=== PATIENT | male | born 1975 | race African-American/Black ===

== ENCOUNTER 2017-09-25 10:08 | Inpatient (IN) | payer SELFPAY ==
--- NOTE | 2017-09-25 10:42 | RAD ---
1 VIEW CHEST: Date: 09/25/17 HISTORY: Cough with chest soreness. COMPARISON: None. FINDINGS: Severe emphysematous changes throughout the lung parenchyma. Hyperinflation is noted. No pneumothorax . Normal cardiac silhouette. IMPRESSION: Severe emphysematous change throughout the lung parenchyma. Large bullae noted in both upper lobes. POS: [facility]
[2017-09-25 11:27] LABS: #Basophils 0.1 thou/uL (0.0-0.2); #Lymphocytes 2.3 thou/uL (1.20-3.40); #Neutrophils 9.3 thou/uL (1.40-6.50); %Basophils 0.6 % (0.0-1.0); %Eosinophils 0.1 % (0.0-10.0); %Lymphocytes 18.2 % (21.0-51.0); %Monocytes 7.8 % (0.0-10.0); Hematocrit 45.4 % (42.0-52.0); Mean Platelet Volume 7.4 fL (7.4-10.4); Red Blood Cell (RBC) Count 4.64 mill/uL (4.70-6.10); White Blood Cell (WBC) Count 12.7 thou/uL (4.8-10.8)
[2017-09-25] MEDS ORDERED: ISOVUE-370 76%-LOCM 1 ML ONE (11:48)
[2017-09-25 11:52] LABS: ALT (SGPT) 19 U/L (8-55); AST (SGOT) 16 U/L (5-34); Alkaline Phosphatase 81 U/L (40-150); Anion Gap 14 mmol/L (10-20); BUN (Urea Nitrogen) 9 mg/dL (8.9-20.6); Bilirubin, Total 0.5 mg/dL (0.2-1.2); CK (CPK) 131 U/L (30-200); Calc. Creatinine Clearance 0 mL/min (70-130); Calcium 9.9 mg/dL (7.8-10.44); Carbon Dioxide 24 mmol/L (22-29); Chloride 104 mmol/L (98-107); Estimated GFR-MDRD Greater than 90; Globulin 3.3 g/dL (2.4-3.5); Lipase 22 U/L (8-78); Protein, Total 7.9 g/dL (6.0-8.3)
[2017-09-25 11:56] LABS: Troponin I Less than 0.010 ng/mL (< 0.028)
[2017-09-25] MEDS ORDERED: Guaifenesin DM 100-10/5 ML UDCUP PO PRN (12:53)
[2017-09-25] MEDS ORDERED: Acetaminophen 325 MG TAB PO PRN (12:53)
[2017-09-25 13:57] VITALS: BMI 17.4
--- NOTE | 2017-09-25 15:42 | CT ---
CT CHEST WITH CONTRAST: Date: 09/25/17 INDICATION: Emphysema. FINDINGS: There is bullous emphysema bilaterally, preferentially involving the upper lobes. Thoracic aorta is n ormal in caliber. No consolidation or effusion. No pneumothorax. No evidence of acute osseous abnorma lity. IMPRESSION: Bullous emphysema. This preferentially involves the upper lobes bilaterally. POS: [facility]
[2017-09-25] MEDS ORDERED: Azithromycin 250 MG TAB PO SCH (16:15)
[2017-09-25] MEDS ORDERED: predniSONE 20 MG TAB PO SCH (16:15)
--- NOTE | 2017-09-25 17:09 | CON ---
DATE OF CONSULTATION: 09/25/2017 REASON FOR CONSULTATION: Bullae. HISTORY OF PRESENT ILLNESS: The patient is a 42-year-old -Welsh male with past medical his tory significant for cigarette smoke. He has a 14-dwai-kmes history of smoking. He also smokes mara le bit of marijuana. Outside that, he has never really had any lung problems. When he was younger, he had 3 severe pneumonias. Each one of them put in the hospital. That being said, by the time he w as a teenager, he had no additional events. He played sports when he was growing up and was always i n front of the pack. He is very athletic. That being said over the past 2-3 years, he has had progr essive dyspnea on exertion. He also has a cough, nonproductive on most days of the week. He denies any current fevers, chills, nausea or vomiting. Recently, he has been having a coughing fit. As a r esult of this, he started having onset of left thoracic cage chest discomfort. [facility] and was subsequently admitted to rule out an [place]. He currently denies any fevers, chills, nausea, vomiting, diarrhea or shortness of breath. PAST MEDICAL HISTORY: None. PAST SURGICAL HISTORY: None. SOCIAL HISTORY: Negative for significant alcohol use. He uses marijuana from time to time. He smok es roughly half pack on a daily basis. He has been doing so for greater than 20 years. He denies an y other illicit substances. He has never smoked any crack cocaine. He has no exposure to chemicals, dust, asbestos or tuberculosis. FAMILY HISTORY: Noncontributory. ALLERGIES: No known drug allergies. MEDICATIONS: List of inpatient medications were reviewed. No specific updates were made at this [facility]. REVIEW OF SYSTEMS: General, head, ears, eyes, nose, throat, cardiovascular, respiratory, GI, , mus culoskeletal, neurologic and skin is negative except as mentioned in the HPI. PHYSICAL EXAMINATION: VITAL SIGNS: Afebrile, pulse 49, blood pressure 121/86, respirations 16, saturation 100% on room air . GENERAL: Patient is awake, alert, in no apparent distress. LUNGS: Excellent air entry. No prolonged expiratory phase, wheezing, rhonchi or crackles. HEART: Normal rate, regular. ABDOMEN: Soft, nontender, nondistended, bowel sounds positive. MUSCULOSKELETAL: No cyanosis or clubbing. No pitting in the bilateral lower extremities. NEUROLOGIC: Grossly nonfocal. LABORATORY DATA: WBC 12.7, hemoglobin 14.7, platelets 271,000. Basic metabolic profile and liver fu nction studies are otherwise unremarkable. Cardiac enzymes x1 is negative. BNP is normal. IMAGING: CT scan demonstrates multiple apical bullae present. This is paraseptal and more predomina ntly involve the upper lobes. There is no acute cardiopulmonary abnormality otherwise identified. I looked in the care of the thoracic wall in which his chest pain was located and all I could see was a prominent intercostal muscle. There was minimal asymmetry compared to the opposite side. Chest x- ray demonstrates bullous emphysematous changes without acute cardiopulmonary process. ASSESSMENT: 1. Chronic obstructive pulmonary disease with acute exacerbation. 2. Musculoskeletal pain from coughing. PLAN: We will give him a 5-day course of steroids. This will be 40 mg p.o. daily for this duration of 5 days. Also, gave him a 5-day course of azithromycin. He can take ibuprofen in the outpatient b asis for discomfort. Otherwise, Pulmonary Critical Care will continue to follow. The alpha 1 antitr ypsin level was ordered. The phenotype was also requested. I will have him return to clinic to see me in 3-4 weeks in the outpatient setting, so that we can follow up the results of laboratory. In e meantime, I strongly encouraged the patient and he means to look into [facility] [place]
--- NOTE | 2017-09-25 17:27 | HP ---
REASON FOR ADMISSION: COPD exacerbation with massive bullous emphysema. HISTORY OF PRESENT ILLNESS: The patient gives history of left-sided chest pain , which is worse on coughing and movement of his upper torso. The chest pain is mild and is always there, which gets worse to the point of 10/10 on coughing , sneezing and movement. The chest pain is on the left chest. He has a dry cough, but no expectoration. No complaints of fever. The patient has never been hospitalized before nor has he been diagnosed with COPD or emphysema in the past. No other family members have lung issues per patient. The patient smokes one pack a day and has been doing so for the last 20 years. He also smokes marijuana occasionally. 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 PAST MEDICAL/SURGICAL HISTORY: Bipolar disorder, not on any medication. CURRENT MEDICATIONS: None. ALLERGIES: No known drug allergies. PERSONAL HISTORY: Smokes one pack a day and has been doing so for the last 20 years. He smokes marijuana occasionally. Does not abuse alcohol or drugs. Lives with his . FAMILY HISTORY: Both parents are healthy. Has three brothers who are healthy as far as he knows. REVIEW OF SYSTEMS: The following complete review of systems was negative, unless otherwise mentioned in the HPI or below: Constitutional: Weight loss or gain, ability to conduct usual activities. Skin: Rash, itching. Eyes: Double vision, pain. ENT/Mouth: Nose bleeding, neck stiffness, pain, tenderness. Cardiovascular: Palpitations, dyspnea on exertion, orthopnea. Respiratory: Shortness of breath, wheezing, cough, hemoptysis, fever or night sweats. Gastrointestinal: Poor appetite, abdominal pain, heartburn, nausea, vomiting, constipation, or diarrhea. Genitourinary: Urgency, frequency, dysuria, nocturia. Musculoskeletal: Pain, swelling. Neurologic/Psychiatric: Anxiety, depression. Allergy/Immunologic: Skin rash, bleeding tendency. PHYSICAL EXAMINATION: GENERAL: The patient is a 42-year-old male who is currently not in any acute distress. VITAL SIGNS: Blood pressure 140/76, pulse 74 per minute, respiratory rate 18 per minute, temperature 98.2 degrees Fahrenheit, saturating 98% on room air. NECK: Supple, no elevated JVD. HEENT: Extraocular muscles intact. Pupils reacting to light. Oral cavity mucous membranes are moist. No exudates or congestion. CARDIOVASCULAR: S1, S2 heard. Regular rhythm. RESPIRATORY: Air entry 1+ bilateral. There is rhonchi heard. ABDOMEN: Soft, bowel sounds heard. No tenderness, rigidity or guarding. EXTREMITIES: No peripheral edema or calf tenderness. VASCULAR SYSTEM: Peripheral pulses 1+ bilateral. No ischemic ulcerations or gangrene. CENTRAL NERVOUS SYSTEM: No gross focal deficits seen. Patient is alert, awake , oriented x3. PSYCHIATRIC SYSTEM: The patient's mood is euthymic. No hallucinations or delusions. LABORATORY AND X-RAY FINDINGS: White count of 12, H&H 14 and 45, platelet count 271, MCV is 97 with 73% neutrophils. Electrolytes are stable. BUN 9, creatinine 1.0. Glucose 73. Liver enzymes within normal limits. First set of cardiac enzymes are negative. BNP is 18, lipase is 22. Chest x-ray done shows findings of emphysema. CT chest, the official reports are pending. Per my review shows severe bullous disease in both upper lobes, especially worse in left upper lobe. EKG done shows normal sinus rhythm at 71 beats per minute with signs of LVH. CLINICAL IMPRESSION AND PLAN: The patient will be admitted to medical floor for severe emphysema with mild chronic obstructive pulmonary disease exacerbation. It is unclear if he ruptured any of the bullae with current left- sided chest pain, worse on deep breathing, coughing and sneezing. He will be empirically placed on Augmentin 875 mg twice daily along with DuoNebs q.6 hourly and steroids IV. I have spoken to Dr. Osborne who will be consulted for Pulmonology. We will obtain alpha 1 antitrypsin levels and CARLEY with reflex. We will obtain an echo with 2D Doppler as well in view of LVH seen on the EKG. We will continue to closely monitor him on medical floor for now. DINAH
[2017-09-25] MEDS ORDERED: Arformoterol 15 MCG/2 ML NEB NEB SCH (18:30)
[2017-09-25] MEDS ORDERED: Amoxicillin/Potassium Clav 875 MG TAB PO SCH (21:00)
[2017-09-25] MEDS ORDERED: Famotidine 20 MG TAB PO SCH ×2 (21:00→23:59)
[2017-09-25] MEDS ORDERED: Calcium Carbonate 500 MG ChewTAB PO PRN (23:50)
[2017-09-25] MEDS ORDERED: Mag-Al 1200 mg/1200 mg/30 ML UDCUP PO PRN (23:50)
[2017-09-26 04:52] LABS: Anion Gap 15 mmol/L (10-20); BUN (Urea Nitrogen) 11 mg/dL (8.9-20.6); Calc. Creatinine Clearance 80 mL/min (70-130); Calcium 9.9 mg/dL (7.8-10.44); Carbon Dioxide 24 mmol/L (22-29); Chloride 102 mmol/L (98-107); Estimated GFR-MDRD Greater than 90
[2017-09-26 05:05] LABS: #Lymphocytes 1.4 thou/uL (1.20-3.40); #Monocytes 0.2 thou/uL (0.11-0.59); #Neutrophils 9.2 thou/uL (1.40-6.50); %Basophils 0.1 % (0.0-1.0); %Eosinophils 0.1 % (0.0-10.0); %Lymphocytes 12.5 % (21.0-51.0); %Monocytes 2.2 % (0.0-10.0); Hematocrit 44.9 % (42.0-52.0); Mean Platelet Volume 7.5 fL (7.4-10.4); Red Blood Cell (RBC) Count 4.59 mill/uL (4.70-6.10); White Blood Cell (WBC) Count 10.8 thou/uL (4.8-10.8)
--- NOTE | 2017-09-26 07:34 | CON ---
DATE OF CONSULTATION: 09/26/2017 HISTORY OF PRESENT ILLNESS: This is a 42-year-old gentleman admitted with some chest wall pain. He was noted to have an abnormal chest x-ray and CT scan was also performed. Findings revealed severe b ullous disease of bilateral upper lobes with apparently well preserved parenchyma on the lower lobes. PAST MEDICAL HISTORY: Unremarkable. 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 He is accompanied by a female friend. He smokes about a half pack of cigarettes a day. MEDICATIONS: None. ALLERGIES: None. PAST MEDICAL HISTORY: Includes only episode of pneumonia x3 as a child. REVIEW OF SYSTEMS: The patient does admit to dyspnea on exertion, perhaps worse in the past year or so, but otherwise has had no limitations in the past. At this time, the patient does not have symptoms to warrant thoracotomy, but down the road it may angelica efit him if he becomes symptomatic. Alpha 1 antitrypsin level is pending and the patient has been co unseled by myself in regards to smoking cessation. He will follow up with Dr. Osborne in regards to his lung disease.
[2017-09-26] MEDS: Azithromycin 250 MG TAB PO SCH (09:43)
[2017-09-26] MEDS: predniSONE 20 MG TAB PO SCH (09:44)
[2017-09-26] MEDS: Enoxaparin Sodium 40 MG/0.4 ML SYRINGE SC SCH (09:44)
[2017-09-26] MEDS: Famotidine 20 MG TAB PO SCH ×2 (09:44→20:31)
--- NOTE | 2017-09-26 10:41 | PDOC.PN ---
- Subjective Encounter Start Date: 09/26/17 Encounter Start Time: 08:15 Subjective: chest pain is better today -: no sob - Objective MAR Reviewed: Yes Vital Signs & Weight: Vital Signs (12 hours) Temp Pulse Resp BP Pulse Ox 09/26/17 08:16 67 16 100 09/26/17 08:00 98.6 F 67 16 98 09/26/17 07:52 98.6 F 60 18 131/77 98 09/26/17 04:00 97.5 F L 69 16 137/76 95 09/26/17 00:00 97.4 F L 57 L 18 134/86 97 Weight Weight 128 lb 14.4 oz I&O: 09/25/17 09/26/17 09/27/17 06:59 06:59 06:59 Intake Total 500 Balance 500 Result Diagrams: 09/26/17 03:54 09/26/17 03:54 Phys Exam - Physical Examination HEENT: PERRLA, moist MMs Neck: no JVD, supple Respiratory: no wheezing, no rales Cardiovascular: RRR, no significant murmur Gastrointestinal: soft, non-tender, positive bowel sounds Musculoskeletal: no edema, pulses present Neurological: non-focal, moves all 4 limbs Psychiatric: A&O x 3 Dx/Plan (1) Emphysema lung Code(s): J43.9 - EMPHYSEMA, UNSPECIFIED Status: Acute Qualifiers: Emphysema type: unspecified Qualified Code(s): J43.9 - Emphysema, unspecified (2) Chest pain Code(s): R07.9 - CHEST PAIN, UNSPECIFIED Status: Acute Qualifiers: Chest pain type: chest pain on breathing Qualified Code(s): R07.1 - Chest pain on breathing; R07.81 - Pleurodynia (3) Tobacco abuse Code(s): Z72.0 - TOBACCO USE Status: Chronic - Plan is on nebs, steroids -: empiric zithromax -: dc plan in am -: send out labs pending * . Review of Systems - Medications/Allergies Allergies/Adverse Reactions: Allergies Allergy/AdvReac Type Severity Reaction Status Date / Time No Known Drug Allergies Allergy Verified 09/25/17 14:03 Medications: Current Medications Acetaminophen (Tylenol) 650 mg PO Q4H PRN PRN Reason: Headache/Fever or Pain Last Admin: 09/26/17 00:29 Dose: 650 mg Al Hydroxide/Mg Hydroxide (Maalox) 30 ml PO Q6H PRN PRN Reason: Heartburn or Indigestion Albuterol/Ipratropium (Duoneb) 3 ml NEB [id number] [facility] Last Admin: 09/26/17 08:16 Dose: 3 ml Azithromycin (Zithromax) 250 mg PO DAILY [facility] Stop: 09/29/17 09:01 Last Admin: 09/26/17 09:43 Dose: 250 mg Calcium Carbonate (Tums) 1,000 mg PO Q4H PRN PRN Reason: Heartburn or Indigestion Enoxaparin Sodium (Lovenox) 40 mg SC 0900 [facility] Last Admin: 09/26/17 09:44 Dose: 40 mg Famotidine (Pepcid) 20 mg PO BID [facility] Last Admin: 09/26/17 09:44 Dose: 20 mg Prednisone (Prednisone) 40 mg PO QA-[facility] Stop: 09/29/17 08:01 Last Admin: 09/26/17 09:44 Dose: 40 mg
[2017-09-26] MEDS: Morphine 4 MG/ML VIAL SLOW IVP PRN ×2 (12:34→20:30)
--- NOTE | 2017-09-26 16:38 | PRG ---
DATE OF SERVICE: 09/26/2017 SERVICE: Pulmonary Medicine. INTERVAL HISTORY: The patient had a coughing fit this morning. It caused severe chest discomfort. He is just now settling down from that. That being said, he says that the breathing treatments have actually improved his cough and has eased up his breathing a little bit. He did not know that he has more significant dyspnea at baseline until he took the breathing treatment. It is also allowing him to get up a whole bunch of green sputum. He currently denies any fevers, chills, nausea, vomiting o r shortness of breath. PHYSICAL EXAMINATION: VITAL SIGNS: Afebrile, pulse 74, blood pressure 126/60, respirations 18, saturation 95% on room air. GENERAL: Patient is awake, alert, no apparent distress. LUNGS: Decent air entry. There is a prolonged expiratory phase, but I do not appreciate wheezing, r honchi or crackles. HEART: Normal rate and regular. ABDOMEN: Soft, nontender, nondistended, bowel sounds positive. MUSCULOSKELETAL: No cyanosis or clubbing. No pitting in the bilateral lower extremities. NEUROLOGIC: Grossly nonfocal. LABORATORY DATA: WBC 10.8, hemoglobin 14.4, platelets 287,000. Basic metabolic profile is completel y unremarkable. Alpha 1 antitrypsin level is normal, but phenotype is currently pending. BNP and tr oponin are also normal. Sputum has few gram positive rods, gram negative rods and moderate gram posi tive cocci in pairs, chains and clusters. ASSESSMENT: 1. Chronic obstructive pulmonary disease with acute exacerbation. 2. Musculoskeletal pain from coughing. PLAN: We will continue antibiotics, steroids, nebulized medications. From my perspective, the patie nt is stable for transition home. I would like to see him back in my clinic in 3-4 weeks to follow u p the results of the alpha 1 antitrypsin phenotype.
[2017-09-27] MEDS: Enoxaparin Sodium 40 MG/0.4 ML SYRINGE SC SCH (07:59)
[2017-09-27] MEDS: Famotidine 20 MG TAB PO SCH ×2 (08:00→20:18)
[2017-09-27] MEDS: predniSONE 20 MG TAB PO SCH (08:00)
[2017-09-27] MEDS: Azithromycin 250 MG TAB PO SCH (08:00)
[2017-09-27] MEDS: Morphine 4 MG/ML VIAL SLOW IVP PRN (08:36)
[2017-09-27] MEDS ORDERED: Cyclobenzaprine 10 MG TAB PO PRN (11:33)
[2017-09-27] MEDS: Acetaminophen/Codeine 30-300mg Tablet PO PRN ×2 (14:02→20:17)
[2017-09-27] MEDS ORDERED: Polyethylene Glycol 3350 17 GM Packet PO SCH (18:15)
[2017-09-27] MEDS: Senokot S 8.6-50 MG TAB PO SCH (20:19)
--- NOTE | 2017-09-27 20:46 | PDOC.PN ---
- Subjective Encounter Start Date: 09/27/17 Encounter Start Time: 17:30 Patient seen and examined. Chest wall pain +. No overnight events - Objective MAR Reviewed: Yes Vital Signs & Weight: Vital Signs (12 hours) Temp Pulse Resp BP Pulse Ox 09/27/17 20:00 98.1 F 62 16 143/73 H 98 09/27/17 19:50 70 18 100 09/27/17 12:16 77 16 100 Weight Admit Weight 128 lb 14.4 oz Weight 128 lb 14.4 oz I&O: 09/26/17 09/27/17 09/28/17 06:59 06:59 06:59 Intake Total 500 Output Total 3 Balance 500 -3 Result Diagrams: 09/26/17 03:54 09/26/17 03:54 Phys Exam - Physical Examination Constitutional: NAD Respiratory: no wheezing, no rhonchi Cardiovascular: RRR, no rub Gastrointestinal: soft, non-tender, positive bowel sounds Musculoskeletal: no edema Neurological: moves all 4 limbs Dx/Plan - Plan DVT proph w/SCDs IMPRESSION: 1. COPD Exacerbation 2. Bullous Emphysema - r/o Alpha 1 antitrypsin def 3. CP - musculosketal 4. Tobacco dep - counseled. PLAN: * Cont Nebs * steroids * antitussives * Pulm/CT input appreciated. Review of Systems - Review of Systems Respiratory: negative: Cough, Dry, Shortness of Breath, Hemoptysis, SOB with Excertion, Pleuritic Pain, Sputum, Wheezing Cardiovascular: negative: Chest Pain, Palpitations, Orthopnea, Paroxysmal Noc. Dyspnea, Edema, Light Headedness - Medications/Allergies Allergies/Adverse Reactions: Allergies Allergy/AdvReac Type Severity Reaction Status Date / Time No Known Drug Allergies Allergy Verified 09/25/17 14:03 Medications: Current Medications Acetaminophen (Tylenol) 650 mg PO Q4H PRN PRN Reason: Headache/Fever or Pain Last Admin: 09/26/17 00:29 Dose: 650 mg Acetaminophen/Codeine Phosphate (Tylenol #3) 1 tab PO Q4H PRN PRN Reason: Moderate Pain (4-6) Last Admin: 09/27/17 20:17 Dose: 1 tab Al Hydroxide/Mg Hydroxide (Maalox) 30 ml PO Q6H PRN PRN Reason: Heartburn or Indigestion Albuterol/Ipratropium (Duoneb) 3 ml NEB [id number] [facility] Last Admin: 09/27/17 19:50 Dose: 3 ml Azithromycin (Zithromax) 250 mg PO DAILY [facility] Stop: 09/29/17 09:01 Last Admin: 09/27/17 08:00 Dose: 250 mg Calcium Carbonate (Tums) 1,000 mg PO Q4H PRN PRN Reason: Heartburn or Indigestion Cyclobenzaprine HCl (Flexeril) 5 mg PO TID PRN PRN Reason: Muscle Spasm Stop: 09/29/17 11:34 Famotidine (Pepcid) 20 mg PO BID [facility] Last Admin: 09/27/17 20:18 Dose: 20 mg Morphine Sulfate (Morphine) 2 mg SLOW IVP Q4H PRN PRN Reason: CHEST PAIN/BP ELEVATIONS Last Admin: 09/27/17 08:36 Dose: 2 mg Polyethylene Glycol (Miralax) 17 gm PO DAILY [facility] Prednisone (Prednisone) 40 mg PO QAM-WM [facility] Stop: 09/29/17 08:01 Last Admin: 09/27/17 08:00 Dose: 40 mg Senna/Docusate Sodium (Senokot S) 2 tab PO BID [facility] Last Admin: 09/27/17 20:19 Dose: Not Given
[2017-09-28 08:42] VITALS: BP 141/66; TEMP 98.4
[2017-09-28] MEDS: Famotidine 20 MG TAB PO SCH (08:49)
[2017-09-28] MEDS: predniSONE 20 MG TAB PO SCH (08:49)
[2017-09-28] MEDS: Azithromycin 250 MG TAB PO SCH (08:50)
[2017-09-28] MEDS: Acetaminophen/Codeine 30-300mg Tablet PO PRN (08:51)
[2017-09-28] MEDS: Senokot S 8.6-50 MG TAB PO SCH (08:52)
[2017-09-28] MEDS ORDERED: Polyethylene Glycol 3350 17 GM Packet PO SCH (09:00)
--- NOTE | 2017-09-28 16:20 | DIS ---
DATE OF DISCHARGE: 09/28/2017 DISCHARGE DISPOSITION: Home. FOLLOWUP: Follow up with primary care physician at [facility] in 1 week. Please note the p fernando has not seen the primary care physician in the past. The patient denies any drug allergies. The patient was seen and examined on the day of discharge. Denies any new complaints. No chest pain , shortness of breath, palpitations. His musculoskeletal chest pain has significantly improved. TESTS PENDING AT DISCHARGE: Alpha 1 antitrypsin phenotype. He will follow up with Dr. Osborne. DISCHARGE MEDICATIONS: 1. Prednisone 40 mg daily for the next 2 days. 2. Flexeril as needed. 3. Azithromycin 250 mg daily for next 2 days. 4. Albuterol inhaler as needed. 5. Albuterol nebulizer solution as needed. INPATIENT CONSULTANTS: 1. Pulmonary, Dr. Osborne. 2. Cardiovascular, Dr. Arauz. BRIEF HOSPITAL COURSE: Patient is a 42-year-old male with ongoing tobacco abuse, who presented to [facility] with shortness of breath as well as chest discomfort. Please refer to the history and y sical dated 09/25/2017 for further details. The patient was admitted to the hospital with a diagnosis of COPD exacerbation. A CT scan of the [facility] showed bullous emphysema preferentially involving the upper lobes bilaterally. He was evaluated b y Cardiovascular, Dr. Arauz as well as Pulmonary, Dr. Osborne. Alpha 1 antitrypsin phenotype has bee n sent. His CARLEY level was negative. Alpha 1 antitrypsin level was 118 (normal is 90-200). He showe d good improvement with nebulizer treatment and steroids. He appears stable for discharge. His resp iratory culture showed normal rodolfo. Tobacco cessation was emphasized. FINAL DIAGNOSES: 1. Shortness of breath secondary to chronic obstructive pulmonary disease exacerbation. 2. Bullous emphysema, rule out alpha 1 antitrypsin deficiency. 3. Musculoskeletal chest pain. 4. Tobacco dependence. 5. Leukocytosis on admission, resolved. His WBC on admission was 12.7, repeat was 10.8. Probably s econdary to #1. Plan of care was discussed with the patient in detail, he stated understanding.
== END 2017-09-28 15:31 | disposition home or self-care (01) | DRG 192 ==
LOC: ERS 10:08 → ONC 12:57
PROVIDERS: ADMIT Internal Medicine; ATTEND Internal Medicine
DX: J43.8 Other emphysema (principal); D72.829 Elevated white blood cell count, unspecified; F17.210 Nicotine dependence, cigarettes, uncomplicated; R07.89 Other chest pain; F31.9 Bipolar disorder, unspecified
CPT/HCPCS: 36415; 71010; 71260; 80048; 80053; 82103; 82553; 83690; 83880; 84484; 85025; 86038; 87070; 87205; 93005; 93306; 94640; J1650; J2270; J7506; J7620

== ENCOUNTER 2020-03-26 08:15 | Emergency (ER) | payer SELFPAY ==
[2020-03-26] MEDS ORDERED: Ondansetron PF 4 MG/2 ML Vial ONE (08:47)
[2020-03-26 08:54] LABS: #Basophils 0.2 thou/uL (0.0-0.2); #Eosinphils 0.1 thou/uL (0.0-0.7); #Lymphocytes 2.5 thou/uL (1.20-3.40); #Monocytes 0.6 thou/uL (0.11-0.59); #Neutrophils 8.6 thou/uL (1.40-6.50); %Basophils 1.6 % (0.0-1.0); %Eosinophils 0.5 % (0.0-10.0); %Lymphocytes 21.2 % (21.0-51.0); %Monocytes 4.9 % (0.0-10.0); %Neutrophils 71.8 % (42.0-75.0); Hemoglobin 14.2 g/dL (14.0-18.0); Mean Corpuscular HGB CONC 32.8 g/dL (32.0-36.0); Mean Corpuscular Hemoglobin 31.3 pg (27.0-31.0); Mean Corpuscular Volume 95.2 fL (78.0-98.0); Mean Platelet Volume 7.6 fL (7.4-10.4); Platelet Count 290 thou/uL (130-400); RBC Distribution Width 12.8 % (11.5-14.5); Red Blood Cell (RBC) Count 4.54 mill/uL (4.70-6.10)
[2020-03-26 09:09] LABS: ALT (SGPT) 14 U/L (8-55); AST (SGOT) 16 U/L (5-34); Albumin 4.7 g/dL (3.5-5.0); Alkaline Phosphatase 81 U/L (40-110); Anion Gap 14 mmol/L (10-20); BUN (Urea Nitrogen) 9 mg/dL (8.9-20.6); Bilirubin, Total 0.8 mg/dL (0.2-1.2); CK (CPK) 144 U/L (30-200); Calc. Creatinine Clearance 0 mL/min (70-130); Carbon Dioxide 24 mmol/L (22-29); Chloride 107 mmol/L (98-107); Estimated GFR-MDRD Greater than 90; Glucose 116 mg/dL (70-105); Lipase 15 U/L (8-78); Protein, Total 7.7 g/dL (6.0-8.3); Sodium 141 mmol/L (136-145)
--- NOTE | 2020-03-26 09:38 | ULT ---
GALLBLADDER ULTRASOUND: HISTORY: Nausea and vomiting x 1 day. Abdominal pain. FINDINGS: The visualized pancreatic parenchyma has a normal echotexture. Hepatic parenchyma has a normal echotexture. No hepatic masses or intrahepatic biliary dilatation. The contour of the hepatic margin is maintained. Right hepatic lobe measures 13.7 cm. No sonographic evidence of cholelithiasis. Questionable small amount of sludge. The gallbladder wal l is not thickened. No pericholecystic fluid. Negative Rdz's sign. Portal vein is patent. Common bile duct diameter is 0.3 cm. The right kidney has a normal echotexture, no hydronephrosis. The right kidney measures 3.5 x 9.0 x 5.7 cm. IMPRESSION: No sonographic evidence of cholecystitis. POS: [facility]
== END 2020-03-26 10:07 | disposition home or self-care (01) ==
LOC: ERS 08:15
DX: R11.2 Nausea with vomiting, unspecified (principal); J44.9 Chronic obstructive pulmonary disease, unspecified; F31.9 Bipolar disorder, unspecified; F17.290 Nicotine dependence, other tobacco product, uncomplicated; Z79.51 Long term (current) use of inhaled steroids
CPT/HCPCS: 76705; 80053; 82550; 83690; 85025; 96361; 96372; 96374; J0500; J2405

== ENCOUNTER 2020-04-21 07:32 | Emergency (ER) | payer SELFPAY ==
[2020-04-21] MEDS ORDERED: Morphine 4 MG/ML VIAL ONE (07:59)
[2020-04-21] MEDS ORDERED: Ondansetron PF 4 MG/2 ML Vial ONE (08:00)
[2020-04-21] MEDS ORDERED: diphenhydrAMINE 50 MG/ML VIAL ONE (08:00)
[2020-04-21] MEDS ORDERED: Metoclopramide HCl 10 MG/2 ML VIAL ONE (08:00)
[2020-04-21 08:19] LABS: #Basophils 0.2 thou/uL (0.0-0.2); #Eosinphils 0.1 thou/uL (0.0-0.7); #Lymphocytes 3.2 thou/uL (1.20-3.40); #Monocytes 0.5 thou/uL (0.11-0.59); #Neutrophils 9.1 thou/uL (1.40-6.50); %Basophils 1.2 % (0.0-1.0); %Eosinophils 0.6 % (0.0-10.0); %Lymphocytes 24.3 % (21.0-51.0); %Monocytes 4.1 % (0.0-10.0); %Neutrophils 69.9 % (42.0-75.0); Hemoglobin 15.6 g/dL (14.0-18.0); Mean Corpuscular HGB CONC 33.9 g/dL (32.0-36.0); Mean Corpuscular Hemoglobin 31.9 pg (27.0-31.0); Mean Platelet Volume 8.9 fL (7.4-10.4); Platelet Count 301 thou/uL (130-400)
[2020-04-21] MEDS ORDERED: Haloperidol Lactate 5 MG/ML VIAL ONE (08:38)
[2020-04-21 08:44] LABS: ALT (SGPT) 22 U/L (8-55); AST (SGOT) 27 U/L (5-34); Albumin 5.2 g/dL (3.5-5.0); Alkaline Phosphatase 94 U/L (40-110); Anion Gap 18 mmol/L (10-20); BUN (Urea Nitrogen) 11 mg/dL (8.9-20.6); Bilirubin, Total 0.8 mg/dL (0.2-1.2); CK (CPK) 186 U/L (30-200); Calc. Creatinine Clearance 0 mL/min (70-130); Calcium 10.4 mg/dL (7.8-10.44); Carbon Dioxide 19 mmol/L (22-29); Chloride 106 mmol/L (98-107); Estimated GFR-MDRD 89; Globulin 3.7 g/dL (2.4-3.5); Glucose 116 mg/dL (70-105); Lipase 25 U/L (8-78); Potassium 4.8 mmol/L (3.5-5.1); Protein, Total 8.9 g/dL (6.0-8.3); Sodium 138 mmol/L (136-145)
[2020-04-21] MEDS ORDERED: Iopamidol-370 76% 500 ML 1 ML ONE (09:42)
--- NOTE | 2020-04-21 10:36 | CT ---
CT ABDOMEN AND PELVIS WITH IV CONTRAST: Date: 04/21/2020 HISTORY: Abdominal pain and vomiting. Nausea. Dizziness. FINDINGS: The lung bases are clear. The liver, spleen, pancreas, adrenal glands, and kidneys are normal. No charleen cified gallstones are seen. No free air, free fluid, or lymphadenopathy noted in the abdomen or pelvi s. There is fluid in loops of small bowel. No abnormal bowel dilatation is seen. No definite evidence of appendicitis noted. There are vascular calcifications without evidence of aneurysmal dilatation o f the abdominal aorta. No acute osseous abnormalities are noted. IMPRESSION: Findings are suggestive of enteritis. POS: [facility]
--- NOTE | 2020-04-21 10:37 | RAD ---
PORTABLE CHEST 1 VIEW: Date: 04/21/2020 Time: 0809 hours HISTORY: Nausea, vomiting, and dizziness. COMPARISON: 09/25/2017. FINDINGS: Extensive emphysematous changes are again seen bilaterally with upper zone dominance. No lobar consol idation or pleural effusions are identified. No definite pneumothorax is seen. IMPRESSION: Severe emphysema. POS: [facility]
== END 2020-04-21 10:25 | disposition home or self-care (01) ==
LOC: ERS 07:32
DX: F12.188 Cannabis abuse with other cannabis-induced disorder (principal); R11.10 Vomiting, unspecified; E86.0 Dehydration; R10.9 Unspecified abdominal pain; J44.9 Chronic obstructive pulmonary disease, unspecified; F31.9 Bipolar disorder, unspecified; F17.290 Nicotine dependence, other tobacco product, uncomplicated
CPT/HCPCS: 71045; 74177; 80053; 82550; 83690; 84484; 85025; 93005; 96361; 96374; 96375; J1200; J1630; J2270; J2405; J2765; Q9967

== ENCOUNTER 2020-08-30 03:38 | Emergency (ER) | payer SELFPAY ==
[2020-08-30] MEDS ORDERED: Haloperidol Lactate 5 MG/ML VIAL ONE (04:15)
[2020-08-30] MEDS ORDERED: diphenhydrAMINE 50 MG/ML VIAL ONE (04:15)
[2020-08-30 04:51] LABS: #Basophils 0.1 thou/uL (0.0-0.2); #Monocytes 0.6 thou/uL (0.11-0.59); #Neutrophils 10.8 thou/uL (1.40-6.50); %Basophils 0.6 % (0.0-1.0); %Eosinophils 0.2 % (0.0-10.0); %Lymphocytes 14.6 % (21.0-51.0); %Monocytes 4.2 % (0.0-10.0); %Neutrophils 80.4 % (42.0-75.0); Hemoglobin 13.3 g/dL (14.0-18.0); Mean Corpuscular HGB CONC 32.2 g/dL (32.0-36.0); Mean Corpuscular Hemoglobin 30.9 pg (27.0-31.0); Mean Platelet Volume 7.7 fL (7.4-10.4); Platelet Count 265 thou/uL (130-400); RBC Distribution Width 12.8 % (11.5-14.5); Red Blood Cell (RBC) Count 4.29 mill/uL (4.70-6.10); White Blood Cell (WBC) Count 13.5 thou/uL (4.8-10.8)
[2020-08-30 05:10] LABS: ALT (SGPT) 19 U/L (8-55); AST (SGOT) 26 U/L (5-34); Albumin 3.9 g/dL (3.5-5.0); Alkaline Phosphatase 65 U/L (40-110); Anion Gap 16 mmol/L (10-20); BUN (Urea Nitrogen) 11 mg/dL (8.9-20.6); Bilirubin, Total 0.8 mg/dL (0.2-1.2); Calc. Creatinine Clearance 0 mL/min (70-130); Calcium 8.8 mg/dL (7.8-10.44); Carbon Dioxide 20 mmol/L (22-29); Chloride 109 mmol/L (98-107); Glucose 82 mg/dL (70-105); Lipase 35 U/L (8-78); Potassium 4.4 mmol/L (3.5-5.1); Protein, Total 6.9 g/dL (6.0-8.3); Sodium 141 mmol/L (136-145)
== END 2020-08-30 05:35 | disposition home or self-care (01) ==
LOC: ERS 03:38
DX: R10.84 Generalized abdominal pain (principal); R11.2 Nausea with vomiting, unspecified; R19.7 Diarrhea, unspecified; J44.9 Chronic obstructive pulmonary disease, unspecified; F31.9 Bipolar disorder, unspecified; F17.290 Nicotine dependence, other tobacco product, uncomplicated
CPT/HCPCS: 36415; 80053; 83690; 85025; 96374; 96375; J1200; J1630

== ENCOUNTER 2021-03-19 07:34 | Emergency (ER) | payer OTHER, SELFPAY ==
[2021-03-19 08:17] LABS: #Basophils 0.1 thou/uL (0.0-0.2); #Lymphocytes 2.4 thou/uL (1.20-3.40); #Monocytes 0.4 thou/uL (0.11-0.59); %Basophils 0.5 % (0.0-1.0); %Lymphocytes 17.6 % (21.0-51.0); %Monocytes 2.6 % (0.0-10.0); %Neutrophils 79.3 % (42.0-75.0); Hemoglobin 15.2 g/dL (14.0-18.0); Mean Corpuscular HGB CONC 33.3 g/dL (32.0-36.0); Mean Corpuscular Hemoglobin 31.1 pg (27.0-31.0); Mean Corpuscular Volume 93.2 fL (78.0-98.0); Mean Platelet Volume 7.7 fL (7.4-10.4); Platelet Count 320 thou/uL (130-400); RBC Distribution Width 12.9 % (11.5-14.5); Red Blood Cell (RBC) Count 4.88 mill/uL (4.70-6.10); White Blood Cell (WBC) Count 13.8 thou/uL (4.8-10.8)
[2021-03-19] MEDS ORDERED: diphenhydrAMINE 50 MG/ML VIAL ONE (08:24)
[2021-03-19] MEDS ORDERED: Haloperidol Lactate 5 MG/ML VIAL ONE (08:24)
[2021-03-19] MEDS ORDERED: Morphine 2 MG/ML VIAL ONE (08:24)
[2021-03-19 08:42] LABS: ALT (SGPT) 19 U/L (8-55); AST (SGOT) 19 U/L (5-34); Albumin 4.8 g/dL (3.5-5.0); Alkaline Phosphatase 87 U/L (40-110); Anion Gap 17 mmol/L (10-20); BUN (Urea Nitrogen) 9 mg/dL (8.9-20.6); Calc. Creatinine Clearance 0 mL/min (70-130); Calcium 10.6 mg/dL (7.8-10.44); Carbon Dioxide 23 mmol/L (22-29); Chloride 104 mmol/L (98-107); Globulin 3.3 g/dL (2.4-3.5); Glucose 128 mg/dL (70-105); Lipase 25 U/L (8-78); Potassium 4.6 mmol/L (3.5-5.1); Protein, Total 8.1 g/dL (6.0-8.3); Sodium 139 mmol/L (136-145)
== END 2021-03-19 10:17 | disposition home or self-care (01) ==
LOC: ERS 07:34
DX: K29.70 Gastritis, unspecified, without bleeding (principal); J44.9 Chronic obstructive pulmonary disease, unspecified; F17.290 Nicotine dependence, other tobacco product, uncomplicated; Z79.899 Other long term (current) drug therapy
CPT/HCPCS: 71045; 74177; 80053; 83690; 85025; 96374; 96375; J1200; J1630; J2270

== ENCOUNTER 2023-04-29 18:26 | Emergency (ER) | payer OTHER ==
[2023-04-29] MEDS ORDERED: Ketorolac Tromethamine 30 MG/ML VIAL ONE (20:04)
== END 2023-04-29 22:35 | disposition home or self-care (01) ==
LOC: ERS 18:26
DX: S60.211A Contusion of right wrist, initial encounter (principal); J44.9 Chronic obstructive pulmonary disease, unspecified; Z79.51 Long term (current) use of inhaled steroids; W19.XXXA Unspecified fall, initial encounter
CPT/HCPCS: 96372; J1885